=== PATIENT | female | born 1980 | race African-American/Black ===

== ENCOUNTER 2016-12-24 21:00 | Emergency (ER) | payer SELFPAY ==
[2016-12-24 21:56] VITALS: BP 131/85
[2016-12-24] MEDS ORDERED: ACETAMINOPHEN 325 MG TABLET PO ONE (22:14)
[2016-12-24] MEDS ORDERED: ONDANSETRON 4 MG TAB.RAPDIS PO ONE (22:14)
--- NOTE | 2016-12-24 22:16 | ER Document Report ---
ED Medical Screen (RME) - General Stated Complaint: ABDOMINAL PAIN Notes: 36 year old female, complains of a sharp upper and a sharp mid to lower abdominal pain that started a few hours ago, slightly better with Aleve, also became nauseated and vomited. PMH , denies other abdominal surgeries. Just finished menstrual cycle. Normal BM earlier today. Drinks regular wine. - Related Data Allergies/Adverse Reactions: surgical tape Allergy (Severe, Uncoded 01/12/13 14:36) Blisters Past Medical History - Past Medical History Cardiac Medical History: Reports: Hx Hypertension - meds x 1 yr or less Denies: Hx Coronary Artery Disease, Hx Heart Attack Pulmonary Medical History: Reports: Hx Asthma - as child Denies: Hx Bronchitis, Hx COPD, Hx Pneumonia Neurological Medical History: Denies: Hx Cerebrovascular Accident, Hx Seizures Musculoskeltal Medical History: Denies Hx Arthritis Past Surgical History: Reports: Hx Breast Surgery - reduction 2003, Hx Section - 2006 - Immunizations Hx Diphtheria, Pertussis, Tetanus Vaccination: Yes Physical Exam - Vital signs Vitals: Temp Pulse Resp BP Pulse Ox 98.6 F 88 17 131/85 H 99 12/24/16 21:53 12/24/16 21:53 12/24/16 21:53 12/24/16 21:53 12/24/16 21:53 - Abdominal Tenderness: Tender - tender, worst in epigastric area, slightly in lower abdomen Course - Vital Signs Vital signs: Temp Pulse Resp BP Pulse Ox 98.6 F 88 17 131/85 H 99 12/24/16 21:53 12/24/16 21:53 12/24/16 21:53 12/24/16 21:53 12/24/16 21:53
== END 2016-12-24 23:42 | disposition left against medical advice (07) ==
LOC: ER 21:00
DX: R10.84 Generalized abdominal pain (principal); R11.2 Nausea with vomiting, unspecified; I10 Essential (primary) hypertension; Z88.8 Allergy status to other drugs, medicaments and biological substances; Z53.20 Procedure and treatment not carried out because of patient's decision for unspecified reasons
CPT/HCPCS: 99281